=== PATIENT | female | born 1955 | race Caucasian/White ===

== ENCOUNTER 2017-06-05 16:44 | Emergency (ER) | payer OTHER, BC ==
[~2017-06-05] VITALS: Ht 175.3 cm; Wt 96.6 kg
[~2017-06-05 16:44] MED LIST: FENO145T PO; LISI10TA5 PO; MONT10TA22 PO; SIMV40TA5 PO; [UNRECOGNIZED DRUG - CODE] PO
[2017-06-05 16:50] VITALS: BP_SYST 133
== END 2017-06-05 16:45 | disposition home or self-care (01) ==
LOC: SED 16:44
DX: S20.20XA Contusion of thorax, unspecified, initial encounter (principal); J45.909 Unspecified asthma, uncomplicated; I10 Essential (primary) hypertension; Z88.1 Allergy status to other antibiotic agents; W19.XXXA Unspecified fall, initial encounter; Y93.89 Activity, other specified; Y92.89 Other specified places as the place of occurrence of the external cause; Y99.8 Other external cause status
CPT/HCPCS: 71100; 99284

== ENCOUNTER 2018-11-01 13:12 | Outpatient (CLI) | payer OTHER, BC | END 2018-11-01 19:01 | disposition home or self-care (01) | LOC: SUS 13:12 | PROVIDERS: ATTEND Orthopaedic Surgery | DX: M79.89 Other specified soft tissue disorders (principal); I82.409 Acute embolism and thrombosis of unspecified deep veins of unspecified lower extremity | CPT/HCPCS: 93971 ==